=== PATIENT | male | born 1935 | race Caucasian/White ===

== ENCOUNTER 2016-10-03 08:03 | Inpatient (IN) | payer MEDICARE, BC ==
[~2016-10-03] VITALS: Ht 175.3 cm; Wt 79.1 kg
[2016-10-03] MEDS ORDERED: ONDANSETRON ODT 4 MG TAB.RAPDIS PO PRN (08:45)
[2016-10-03 09:14] LABS: BASO % 1 % (0-3); EOS % 0 % (0-3); HEMATOCRIT 40.5 % (39.0-53.0); HEMOGLOBIN 14.2 g/dL (13.0-17.5); LYMPH # 1.3 x10^3/uL (1.0-4.8); LYMPH % 14 % (24-48); MEAN CORPUSCULAR HEMOGLOBIN 32 pg (25-35); MEAN CORPUSCULAR HGB CONC 35 g/dL (31-37); MEAN CORPUSCULAR VOLUME 91 fL (79-100); MONO # 0.6 x10^3/uL (0.0-1.1); MONO % 6 % (0-9); NEUT # 7.4 x10^3uL (1.8-7.7); NEUT % 79 % (31-73); PLATELET COUNT 198 x10^3/uL (140-400); RED BLOOD COUNT 4.46 x10^6/uL (4.30-5.70); RED CELL DISTRIBUTION WIDTH 13.4 % (11.5-14.5); WHITE BLOOD COUNT 9.4 x10^3/uL (4.0-11.0)
[2016-10-03 09:32] VITALS: BP 126/71
[2016-10-03 09:32] LABS: ALBUMIN 3.2 g/dL (3.4-5.0); CALCIUM 9.2 mg/dL (8.5-10.1); CREATININE 1.7 mg/dL (0.7-1.3); GFR 39.1; POTASSIUM 3.6 mmol/L (3.5-5.1); TOTAL BILIRUBIN 1.2 mg/dL (0.2-1.0); TOTAL PROTEIN 6.5 g/dL (6.4-8.2)
[2016-10-03 09:34] VITALS: BP 126/71
[2016-10-03] MEDS: IV NORMAL SALINE 1,000ML 1,000 ML IV SCH ×2 (09:57→17:49)
[2016-10-03] MEDS: MORPHINE SULFATE 2 MG/ML DISP.SYRIN. IV PRN (09:57)
--- NOTE | 2016-10-03 10:20 | RAD ---
ACUTE ABDOMEN SERIES Clinical Indication: abd pain Comparison: None. Technique: Frontal view the chest and upright and supine frontal views of the abdomen are obtained. Findings: No focal consolidation, pleural effusion or pneumothorax is seen. Cardia mediastinal silhouette is within normal limits of size. No intra-abdominal free air is seen on the upright views. Bowel gas is present beneath the right hemidiaphragm. No dilated bowel loops or air-fluid levels are seen to suggest obstruction. Formed fecal material seen within the colon. The entire lateral portion of the right abdomen is not included in the exam. Postcholecystectomy clips seen in the right upper quadrant. Visualized osseous structures and surrounding soft tissues demonstrate no acute finding. IMPRESSION: No focal consolidation or acute radiographic finding in the chest. Nonobstructive appearing bowel gas pattern.
[2016-10-03] MEDS ORDERED: ENOXAPARIN 40 MG/0.4 ML DISP.SYRIN. SQ SCH (10:30)
[2016-10-03 11:16] VITALS: BP 112/68
[2016-10-03] MEDS ORDERED: CARV3.122 PO (16:18)
--- NOTE | 2016-10-03 16:18 | HP ---
ADMIT DATE: 10/03/2016 HISTORY OF PRESENT ILLNESS: A 80-year-old male, who recently last 4-5 days has been having problems with right flank pain, went to the ER at [facility], found to have a kidney stone, was sent home. The patient notes it has got increasingly worse with nausea, vomiting and severe pain is even worse. The patient is not able to eat or drink much. His pain is 10/10. The patient was admitted to the hospital for further evaluation of his kidney stone as well as abdominal pain. The patient requires IV fluid hydration and was unable to urinate either, was not passing any urine for the last 18 hours or so. So, he was admitted to the hospital for further evaluation on the multiplicity of medical problems there. PAST MEDICAL HISTORY: Includes; hyperlipidemia, hypertension, hypogonadism, hyperthyroidism, stents placed for coronary artery disease, high blood pressure, hypercholesterolemia, and coronary artery disease. MEDICATIONS: Lumigan eye drops. His eye drops are not listed here, presently, but he just recently had cataract surgery and requires several eye drops not listed as yet in the official chart, but he should continue those obviously. ALLERGIES: The patient has an adverse reaction to OXYCODONE. FAMILY HISTORY: Noncontributory. SOCIAL HISTORY: The patient denies smoking, alcohol or drug use. REVIEW OF SYSTEMS: The patient denies any melena, hematochezia, hematemesis. The patient denies any chest pain or shortness of breath, but does have nausea, some retching, decreased bowel movements. No urination. Neurologically, baseline has some signs of dementia. PHYSICAL EXAMINATION: GENERAL: Pleasant white male, in moderate amount of distress. VITAL SIGNS: Blood pressure 120/70, respiratory rate 20, pulse 70, and afebrile. HEENT: The patient's head was atraumatic, normocephalic. Eyes: PERRLA without jaundice. Fairly pale appearing. Mouth and throat were normal. NECK: Supple, without JVD, carotid bruits. No thyromegaly. LUNGS: The patient's lungs were diminished throughout, but clear. CARDIOVASCULAR: Regular sinus rhythm, S1, S2, without murmur, rub, thrill, or extra heart sounds. ABDOMEN: Soft, nontender, no rebound or guarding, positive bowel sounds, no hepatosplenomegaly was noted, except for pain in his right flank area was noted. No rebounding. EXTREMITIES: No clubbing, cyanosis or edema. NEUROLOGIC: The patient was alert and oriented x 3. The patient did have an oxygen saturation of only 90% on room air. LABORATORY DATA: The patient's creatinine is 1.7, sodium, potassium stable. White count was normal. Coags are normal. CV elevated at 4.3. PLAN: The patient otherwise will be continued to be monitored carefully and make further evaluation on him as indicated. IMPRESSION: Nephrolithiasis, right distal ureter, blockage there, anuria, dehydration, hypoxia, and chronic kidney disease 3. CLAUDIA COTTO MD DR: BEN/светлана JOB#: [id number] / [id number]
[2016-10-03] MEDS ORDERED: BRIN10DR EACHEYE (16:20)
[2016-10-03] MEDS ORDERED: FISH12002 PO (16:21)
[2016-10-03] MEDS ORDERED: CYAN10005 PO (16:21)
[2016-10-03] MEDS ORDERED: BROM5DRO3 OP (16:21)
[2016-10-03] MEDS ORDERED: BIMA2.5D EACHEYE (16:25)
[2016-10-03] MEDS ORDERED: LEVO50TA5 PO (16:25)
[2016-10-03] MEDS ORDERED: MOXI3DRO2 OS (16:26)
[2016-10-03] MEDS ORDERED: PRED1DRO OS (16:27)
[2016-10-03] MEDS ORDERED: MEMA1CAP4 PO (16:27)
[2016-10-03] MEDS ORDERED: ROSU20TA35 PO (16:29)
[2016-10-03] MEDS ORDERED: VIT1CAPS12 PO (16:29)
[2016-10-03 17:00] VITALS: BP 128/77
--- NOTE | 2016-10-03 17:14 | RAD ---
NUCLEAR MEDICINE VENTILATION PERFUSION SCAN History: + d dimer Comparison: None, correlation with chest radiograph obtained earlier on the same day. Technique: Ventilation portion performed after inhalation of 12 mCi of Xenon-133. Anterior and posterior initial breath-hold, equilibrium, and washout phase images are obtained. Perfusion portion performed after intravenous administration of 5.5 mCi Technetium 99m MAA. Multiple projection planar images were obtained. Findings: Ventilation images appear within normal limits. Perfusion images demonstrate homogenous uptake of radiotracer. Cardiac shadow noted on the left. IMPRESSION: Low probability for PE.
[2016-10-03 20:49] VITALS: BP 119/53
[2016-10-03] MEDS: TAMSULOSIN 0.4 MG CAP.ER.24H. PO SCH (20:49)
[2016-10-04] MEDS: MORPHINE SULFATE 2 MG/ML DISP.SYRIN. IV PRN (02:24)
[2016-10-04 05:17] VITALS: BP 129/75
[2016-10-04] MEDS: IV NORMAL SALINE 1,000ML 1,000 ML IV SCH ×4 (06:19→20:38)
[2016-10-04] MEDS ORDERED: PNEUMOC CONJ VACC 23-VALENT 0.5 ML VIAL. VAX IM ONE (09:00)
[2016-10-04] MEDS: MEMANTINE HCL PO SCH (09:00)
[2016-10-04] MEDS: DONEPEZIL HCL PO SCH (09:00)
[2016-10-04] MEDS ORDERED: ONDANSETRON PF 4 MG/2 ML VIAL. IV PRN (09:45)
[2016-10-04 11:09] LABS: BASO # 0.1 x10^3/uL (0.0-0.2); BASO % 1 % (0-3); EOS # 0.1 x10^3/uL (0.0-0.7); EOS % 3 % (0-3); HEMATOCRIT 39.3 % (39.0-53.0); HEMOGLOBIN 13.7 g/dL (13.0-17.5); LYMPH # 1.7 x10^3/uL (1.0-4.8); LYMPH % 28 % (24-48); MEAN CORPUSCULAR HEMOGLOBIN 32 pg (25-35); MEAN CORPUSCULAR HGB CONC 35 g/dL (31-37); MEAN CORPUSCULAR VOLUME 91 fL (79-100); MONO # 0.6 x10^3/uL (0.0-1.1); MONO % 10 % (0-9); NEUT # 3.6 x10^3uL (1.8-7.7); NEUT % 59 % (31-73); PLATELET COUNT 194 x10^3/uL (140-400); RED CELL DISTRIBUTION WIDTH 13.6 % (11.5-14.5); WHITE BLOOD COUNT 6.1 x10^3/uL (4.0-11.0)
[2016-10-04 11:13] LABS: CALCIUM 8.7 mg/dL (8.5-10.1); CREATININE 1.2 mg/dL (0.7-1.3); GFR 58.4; POTASSIUM 3.4 mmol/L (3.5-5.1)
[2016-10-04 11:36] VITALS: BP 104/69
[2016-10-04 16:03] VITALS: BP 135/92
[2016-10-04 16:17] VITALS: BP 137/68
--- NOTE | 2016-10-04 18:02 | PDOC ---
PROVIDER NOTE PROVIDER NOTE PROVIDER NOTE UROLOGY: Consult dictated C/C right flank pain, 1-2mm proximal right ureteral calculus Exam: comfortable denies pain at this time Suggest; continue IV hydration and Flomax, I think he should be able to pass the calculus spontaneously, will follow. Thank-you, ARGELIA CONTRERAS DO Oct 04, 2016 18:01
[2016-10-04 20:03] VITALS: BP 126/78
[2016-10-04] MEDS: TAMSULOSIN 0.4 MG CAP.ER.24H. PO SCH (20:37)
[2016-10-04] MEDS ORDERED: ENOXAPARIN 40 MG/0.4 ML DISP.SYRIN. SQ SCH (21:00)
--- NOTE | 2016-10-04 22:54 | CONS ---
DATE OF CONSULTATION: 10/04/2016 CHIEF COMPLAINT: Right flank pain, right ureteral calculus. HISTORY OF PRESENT ILLNESS: This is a 80-year-old male who had been experiencing right flank pain for several days. He was initially evaluated at [facility] and a noncontrast CT scan revealed a 1 to 2 mm calculus in the proximal right ureter with mild hydronephrosis. The patient was sent home. He continued to have pain and discomfort and became dehydrated there. Therefore, he was admitted to [facility] by Dr. Nic Ricardo. The patient had no previous history of kidney stones. He states that he has not had much pain today. PAST MEDICAL HISTORY: The patient has a history of hypertension, hyperthyroidism, coronary artery stents, elevated cholesterol, coronary artery disease and mild dementia. MEDICATIONS: Medication list was reviewed. ALLERGIES: THE PATIENT HAS SOME ILL EFFECTS WHEN HE TAKES OXYCODONE. SOCIAL HISTORY: The patient is retired, lives with his in [place], [place]. PHYSICAL EXAMINATION: GENERAL DESCRIPTION: A 80-year-old male. He appears to be alert and oriented. He denies any acute pain or discomfort at this time. ABDOMEN: Soft, nontender. Negative for flank pain to palpation bilaterally. No palpable abdominal masses. No guarding or rigidity. GENITALIA: External genitalia normal for age. RECTAL: Not performed at this time. MUSCULOSKELETAL: Negative for cyanosis or edema. LABORATORY DATA: The patient's white blood cell count is within normal limits. His hemoglobin was 13.7, hematocrit 39.3 and platelet count is adequate. Chemistries on admission, the patient appeared to be dehydrated. His creatinine was 1.7. Today, his creatinine is 1.2. His BUN is 12. Potassium is 3.4. Calcium is normal at 8.7. Urinalysis, none on the chart at this time. X-RAY STUDIES: I reviewed the CT report from [facility], which states there is a 1 to 2 mm calculus in the proximal right ureter with mild hydronephrosis. KUB taken at this institution is not very helpful. The patient has feces within the colon. The entire lateral portion on the right abdomen was not included in the exam. IMPRESSION: 1. Acute right ureteral colic -- improved. 2. History of 1 to 2 mm calculus proximal right ureter. SUGGESTIONS: 1. I think that this calculus should pass spontaneously with IV hydration and Flomax. 2. I told the patient we would wait another 24 hours before any type of intervention. I think that this should pass spontaneously with IV hydration and analgesia. I will plan to see the patient in followup tomorrow. ARGELIA CONTRERAS DO DR: Gayatri JOB#: [id number] / [id number]
[2016-10-05 04:54] VITALS: BP 147/82
[2016-10-05 06:17] LABS: BASO % 0 % (0-3); EOS # 0.2 x10^3/uL (0.0-0.7); EOS % 3 % (0-3); LYMPH # 1.7 x10^3/uL (1.0-4.8); LYMPH % 26 % (24-48); MEAN CORPUSCULAR HEMOGLOBIN 32 pg (25-35); MEAN CORPUSCULAR HGB CONC 35 g/dL (31-37); MEAN CORPUSCULAR VOLUME 91 fL (79-100); MONO # 0.7 x10^3/uL (0.0-1.1); MONO % 10 % (0-9); NEUT % 60 % (31-73); PLATELET COUNT 183 x10^3/uL (140-400); RED BLOOD COUNT 4.07 x10^6/uL (4.30-5.70); RED CELL DISTRIBUTION WIDTH 13.5 % (11.5-14.5); WHITE BLOOD COUNT 6.6 x10^3/uL (4.0-11.0)
[2016-10-05] MEDS: IV NORMAL SALINE 1,000ML 1,000 ML IV SCH (06:19)
[2016-10-05 06:28] LABS: CALCIUM 8.4 mg/dL (8.5-10.1); CREATININE 1.1 mg/dL (0.7-1.3); GFR 64.6; POTASSIUM 3.4 mmol/L (3.5-5.1)
[2016-10-05] MEDS: DONEPEZIL HCL PO SCH (08:21)
[2016-10-05] MEDS: MEMANTINE HCL PO SCH (08:21)
[2016-10-05] MEDS ORDERED: TAMS0.4C97 PO (10:09)
== END 2016-10-05 10:56 | disposition home or self-care (01) | DRG 693 ==
LOC: 1 SOUTH 08:08
PROVIDERS: ADMIT Family Medicine; ATTEND Family Medicine
DX: N13.2 Hydronephrosis with renal and ureteral calculous obstruction (principal); J96.20 Acute and chronic respiratory failure, unspecified whether with hypoxia or hypercapnia; I25.10 Atherosclerotic heart disease of native coronary artery without angina pectoris; I12.9 Hypertensive chronic kidney disease with stage 1 through stage 4 chronic kidney disease, or unspecified chronic kidney disease; F03.90 Unspecified dementia, unspecified severity, without behavioral disturbance, psychotic disturbance, mood disturbance, and anxiety; E86.0 Dehydration; E78.5 Hyperlipidemia, unspecified; E78.00 Pure hypercholesterolemia, unspecified; N18.3 Chronic kidney disease, stage 3 (moderate); E05.90 Thyrotoxicosis, unspecified without thyrotoxic crisis or storm; R09.02 Hypoxemia; Z95.5 Presence of coronary angioplasty implant and graft; Z88.5 Allergy status to narcotic agent
CPT/HCPCS: 36415; 74022; 78582; 80048; 80053; 83605; 85027; 85379; 96374; A9540; A9558; J1650; J1956; J2270; Q0162; J7030